=== PATIENT | male | born 1995 | race Caucasian/White ===

== ENCOUNTER 2018-10-18 21:39 | Emergency (ER) | payer SELFPAY ==
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
== END 2018-10-18 23:30 | disposition expired ==
LOC: MW.ED 21:39
DX: I46.9 Cardiac arrest, cause unspecified (principal)
CPT/HCPCS: 99281; 99283; 99285